=== PATIENT | male | born 1980 | race Caucasian/White ===

== ENCOUNTER 2023-03-15 11:52 | Emergency (ER) | payer BC, SELFPAY ==
--- NOTE | ~2023-03-15 | XR_ITS ---
XR finger 1st LT min 2V 03/15/2023 13:12 Indication: Left first finger pain. Repetitive motion at work. Procedure: 3 views left first finger Comparison: No prior studies for comparison. Findings: No fracture, subluxation or dislocation. No significant degenerative change. No foreign bod ies. Impression: 1: No acute bone or joint abnormality. Reviewed, dictated and finalized at location B. Impression: 1: No acute bone or joint abnormality.
--- NOTE | ~2023-03-15 | XR_ITS ---
EXAMINATION: XR wrist LT min 3V DATE: 03/15/2023 13:12 INDICATION: Left wrist injury. TECHNIQUE: 4 views of left wrist were obtained. COMPARISON: None. FINDINGS: Bone alignment is normal. No fracture. Joint spaces are normal. There are dystrophic calcif ications ulnar to the carpus. IMPRESSION: 1. No fracture. Reviewed, dictated and finalized at location E. IMPRESSION: 1. No fracture.
[2023-03-15 12:04] VITALS: BP 153/96; PULSE 99; RESP 18; TEMP 37.1; O2SAT 98
--- NOTE | 2023-03-15 12:59 | ED.EXTPRO ---
HPI - Extremity Problem General Chief complaint: Extremity Injury, Upper Stated complaint: left arm pain Time Seen by Provider: 03/15/23 12:49 Source: patient and RN notes reviewed Mode of arrival: ambulatory Limitations: no limitations History of Present Illness HPI Narrative: Patient presents today complaining of left wrist and thumb pain. Pain was present upon waking up yesterday morning. Denies injury or trauma. Reports some tingling in his fingers. Currently rates his pain 2/10, which increases with movement. 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 Related Data Home Medications Medication Instructions Recorded Confirmed albuterol 90 mcg/actuation aerosol mcg inhalation 03/15/23 inhaler Allergies Allergy/AdvReac Type Severity Reaction Status Date / Time amoxicillin Allergy Unknown Unknown Verified 03/15/23 12:10 Review of Systems Review of Systems: CONSTITUTIONAL: Denies body aches, fever, chills, or sweats. EYES: Denies visual changes, redness, or discharge. ENT: Denies rhinorrhea, congestion, sore throat, or otalgia. CARDIOVASCULAR: Denies chest pain, palpitations, or edema. RESPIRATORY: Denies cough or dyspnea. GASTROINTESTINAL: Denies abdominal pain, nausea, vomiting, or diarrhea. GENITOURINARY: Denies dysuria or hematuria. SKIN: Denies rash, itching, or wounds. MUSCULOSKELETAL: Denies back pain, or myalgia.+ left wrist and hand pain NEUROLOGIC: Denies headache, numbness, or weakness.+ left finger tingling PSYCH: Denies depression or anxiety. [facility] Family History Family History Father Hypertension Mother Family history of malignant neoplasm of cervix Social History Social History Smoking status: Never smoker Alcohol intake: never Comments At time of signature, I have reviewed and agree with nursing past medical, surgical, social and family history unless otherwise noted. Please see nursing chart for further information. There is no relevant family history pertinent to the presenting complaint Exam Narrative: GENERAL: Well-appearing, well-nourished, and in no acute distress. HEAD: Normocephalic, atraumatic. EYES: EOMI. No redness or drainage. Conjunctivae normal. ENT: Mucous membranes pink and moist. NECK: Normal AROM. CHEST: No respiratory distress. EXTREMITIES: Left hand: Mild tenderness to the distal ulna. Tenderness to the thenar eminence. No ecchymosis, erythema, or edema noted. Distal sensation intact in all 5 fingers. Capillary refill normal. Radial pulse normal. Pain increases in the wrist with ulnar deviation, flexion, extension, and supination. SKIN: Warm, dry, no rash. Capillary refill normal. Normal skin turgor. NEURO: No focal deficits. Alert and oriented x3. Gait steady. PSYCH: Normal affect. No signs of depression or anxiety. Course Course Level of Care: Express Care Visit Vital Signs Vital signs: Vital Signs Temperature 98.7 F 03/15/23 12:04 Pulse Rate 99 03/15/23 12:04 Respiratory Rate 18 03/15/23 12:04 Blood Pressure 153/96 H 03/15/23 12:04 Pulse Oximetry 98 03/15/23 12:04 Oxygen Delivery Room Air 03/15/23 12:04 Temperature 98.7 F 03/15/23 12:04 Pulse Rate 99 03/15/23 12:04 Respiratory Rate 18 03/15/23 12:04 Blood Pressure 153/96 H 03/15/23 12:04 Pulse Oximetry 98 03/15/23 12:04 Oxygen Delivery Room Air 03/15/23 12:04 Reviewed. Pt has been instructed to follow up with his PCP regarding his elevated blood pressure today. MDM - Extremity (Nontraumatic) MDM Narrative Medical decision making narrative: X-rays are negative for anything acute. Symptoms likely due to tendinitis. Will treat with prednisone. Recommend follow-up with orthopedics or PCP in 1 week if symptoms do not improve. Anticipat
== END 2023-03-15 13:47 | disposition home or self-care (01) ==
PROVIDERS: Emergency Provider Nurse Practitioner
DX: M77.8 Other enthesopathies, not elsewhere classified (principal)
CPT/HCPCS: 73110; 73140; 99213; G0463

== ENCOUNTER 2025-05-04 15:31 | Outpatient (CLI) | payer BC, SELFPAY ==
--- NOTE | ~2025-05-04 | CT_ITS ---
EXAM/PROCEDURE: CT abdomen pelvis wo con HISTORY: Flank pain, left side COMPARISON: 12/23/2011 TECHNIQUE: Noncontrast CT of the abdomen and pelvis performed. FINDINGS: Lung bases are clear and heart size normal. Moderately severe diffuse fatty infiltrative changes of the liver. No kidney stones, urinary bladder stones or obstructing ureteral stones. Adrenal glands and urinary bladder appear within normal limits for technique. Prostate also appears normal. Normal size appendix and aorta. Gallbladder is contracted but no gross CT evidence of acute cholecystitis pancreatitis or biliary ductal dilatation. No bulky lymphadenopathy or masses seen. The bowel gas pattern is nonobstructive with no free air free fluid or pneumatosis seen. Mild scattered diverticular disease present with no gross acute diverticulitis. Small amount of stool extends to the cecum. IMPRESSION: Directed noncontrast CT of the abdomen and pelvis demonstrating no focal acute process to explain patient's symptoms. Reviewed, dictated and finalized at location A. E/M ENGINEER
== END 2025-05-04 15:32 | disposition home or self-care (01) ==
LOC: MICIMG 15:32
PROVIDERS: PCP Family Medicine; Visit Provider Physician Assistant
DX: R10.A2 Flank pain, left side (principal)
CPT/HCPCS: 74176